=== PATIENT | female | born 1965 | race Caucasian/White ===

== ENCOUNTER 2021-11-27 10:22 | Inpatient (IN) | payer OTHER, MEDICAID ==
[~2021-11-27] VITALS: Ht 172.7 cm; Wt 73.4 kg
[2021-11-27] MEDS ORDERED: SODIUM CHLORIDE 0.9% 100 ML ONE (10:54)
[2021-11-27] MEDS ORDERED: IOHEXOL 350 MG/ML 100 ML VIAL ONE (10:54)
[2021-11-27] MEDS ORDERED: LABETALOL HCL 5 MG/ML 20 ML VIAL IVP ONE (11:00)
[2021-11-27] MEDS ORDERED: ALTEPLASE PER STROKE PROTOCOL CLINICAL ONE (11:00)
[2021-11-27] MEDS ORDERED: WATER FOR INJECTION STERILE IV ONE ×4 (11:00→11:15)
[2021-11-27] MEDS ORDERED: ALTEPLASE IV ONE ×4 (11:00→11:15)
[2021-11-27 11:05] LABS: BASOPHILS % (AUTO) 0.6 % (0.0-2.0); EOSINOPHILS % (AUTO) 0.3 % (1.0-6.0); HEMATOCRIT 43.9 % (36-46); HEMOGLOBIN 14.7 g/dL (12.0-16.0); LYMPHOCYTES # (AUTO) 1.4 K/uL (1.0-4.8); LYMPHOCYTES % (AUTO) 15.7 % (22.0-44.0); MEAN CORPUSCULAR HEMOGLOBIN 29.2 pg (26.0-34.0); MEAN CORPUSCULAR HGB CONC 33.4 G/dL (31.0-37.0); MEAN CORPUSCULAR VOLUME 88 fL (80-100); MONOCYTES # (AUTO) 0.4 K/uL (0.1-1.0); MONOCYTES % (AUTO) 4.7 % (2.0-9.0); NEUTROPHILS % (AUTO) 78.7 % (40.0-70.0); PLATELET COUNT (AUTO) 357 K/uL (150-450); RED BLOOD CELL COUNT(AUTO) 5.02 MIL/uL (4.00-5.20); RED CELL DISTRIBUTION WIDTH 13.4 % (11.5-14.5)
[2021-11-27 11:16] LABS: ANION GAP 10 mmol/L (8-16); CALCIUM, TOTAL 8.9 mg/dL (8.8-10.5); CARBON DIOXIDE 28 mmol/L (22-29); CHLORIDE 100 mmol/L (98-107); CREATININE 0.83 mg/dL (0.60-1.30); GLOMERULAR FILTR. RATE CALC > 60 mL/min (>60); GLUCOSE,RANDOM 117 mg/dL (70-110); POTASSIUM 3.9 mmol/L (3.5-5.1); SODIUM SERUM 138 mmol/L (136-145); UREA NITROGEN, BLOOD 15 mg/dL (7-18)
[2021-11-27 11:24] LABS: ALANINE AMINOTRANSFERASE 17 U/L (12-78); ALBUMIN 3.6 g/dL (3.4-5.0); ALKALINE PHOSPHATASE 98 U/L (46-116); ASPARTATE AMINOTRANSFERASE 15 U/L (15-37); BILIRUBIN,TOTAL 0.2 mg/dL (0.1-1.0)
[2021-11-27 11:25] LABS: PROTHROMBIN TIME 10.6 SEC (9.4-11.6)
[2021-11-27] MEDS ORDERED: ONDANSETRON HCL 4 MG/2 ML VIAL IVP PRN (11:45)
[2021-11-27] MEDS ORDERED: ACETAMINOPHEN 325 MG TABLET PO PRN (11:45)
[2021-11-27] MEDS ORDERED: BISACODYL 10 MG RECTAL RECTAL SUPPOSITORY PR PRN (11:45)
[2021-11-27 14:51] LABS: COVID AG,FIA SOURCE NASAL SWAB
[2021-11-27 14:53] LABS: APPEARANCE,URINE CLEAR (CLEAR); BILIRUBIN,URINE NEGATIVE (NEGATIVE); GLUCOSE, URINE (UA) NEGATIVE (NEGATIVE); KETONES,URINE NEGATIVE (NEGATIVE); LEUKOCYTE ESTERASE ,URINE NEGATIVE (NEGATIVE); NITRATE,URINE NEGATIVE (NEGATIVE); OCCULT BLOOD,URINE MODERATE (NEGATIVE); PH,URINE 5.5 (5.0-8.0); PROTEIN,URINE SEE CONFIRM (NEGATIVE); UROBILINOGEN,URINE 0.2 mg/dL (<=1.0)
[2021-11-27 14:59] LABS: AMPHET/METH SCREEN,URINE NEGATIVE (NEGATIVE); BARBITURATE SCREEN, URINE NEGATIVE (NEGATIVE); BENZODIAZEPINES SCREEN,URINE NEGATIVE (NEGATIVE); CANNABINOID SCREEN,URINE NEGATIVE (NEGATIVE); COCAINE SCREEN,URINE NEGATIVE (NEGATIVE); METHADONE SCREEN, URINE NEGATIVE (NEGATIVE); OPIATE SCREEN,URINE NEGATIVE (NEGATIVE)
[2021-11-27 15:00] LABS: PHENCYCLIDINE SCREEN,URINE NEGATIVE (NEGATIVE)
[2021-11-27 15:27] LABS: BACTERIA,URINE Rare /HPF (None Seen); SQUAMOUS EPITHELIAL CELL,UR Few /LPF (None Seen); SULFOSALICYLIC ACID,URINE 2+ (Negative); WBC,URINE 0-2 /HPF (0-5)
[2021-11-27] MEDS ORDERED: VANCOMYCIN HCL 1 GM in DEXTROSE 5%-WATER 250 ML IV ONE (17:00)
[2021-11-27] MEDS ORDERED: CefTRIAXone 1 GM/DEXTROSE 50 ML IV ONE (17:00)
[2021-11-27] MEDS ORDERED: VANCOMYCIN HCL 1 GM/D5% WATER 200 ML IV ONE (17:00)
[2021-11-27 20:00] VITALS: BP 117/54
[2021-11-27 21:00] VITALS: BP 103/46
[2021-11-27 22:00] VITALS: BP 98/48
[2021-11-27 23:00] VITALS: BP 118/40
[2021-11-28] VITALS (9 sets, daily range): BP systolic 100–118; BP diastolic 43–95
[2021-11-28] MEDS: PANTOPRAZOLE SODIUM 40 MG/VIAL IVP SCH (09:25)
[2021-11-28] MEDS: ASPIRIN 81 MG CHEWABLE TABLET PO SCH (12:07)
[2021-11-28] MEDS: ATORVASTATIN CALCIUM 40 MG TABLET PO SCH (12:08)
[2021-11-29 02:00] VITALS: BP 113/60
[2021-11-29 05:51] LABS: BASOPHILS % (AUTO) 0.9 % (0.0-2.0); EOSINOPHILS % (AUTO) 0.7 % (1.0-6.0); HEMATOCRIT 41.3 % (36-46); HEMOGLOBIN 14.1 g/dL (12.0-16.0); LYMPHOCYTES # (AUTO) 2.6 K/uL (1.0-4.8); LYMPHOCYTES % (AUTO) 25.8 % (22.0-44.0); MEAN CORPUSCULAR HEMOGLOBIN 29.6 pg (26.0-34.0); MEAN CORPUSCULAR VOLUME 87 fL (80-100); MONOCYTES % (AUTO) 9.7 % (2.0-9.0); NEUTROPHILS # (AUTO) 6.3 K/uL (1.8-7.7); NEUTROPHILS % (AUTO) 62.9 % (40.0-70.0); PLATELET COUNT (AUTO) 341 K/uL (150-450); RED BLOOD CELL COUNT(AUTO) 4.75 MIL/uL (4.00-5.20); RED CELL DISTRIBUTION WIDTH 13.4 % (11.5-14.5)
[2021-11-29 06:17] LABS: ANION GAP 10 mmol/L (8-16); CALCIUM, TOTAL 9.1 mg/dL (8.8-10.5); CARBON DIOXIDE 28 mmol/L (22-29); CHLORIDE 102 mmol/L (98-107); CREATININE 0.82 mg/dL (0.60-1.30); GLOMERULAR FILTR. RATE CALC > 60 mL/min (>60); GLUCOSE,RANDOM 87 mg/dL (70-110); POTASSIUM 3.5 mmol/L (3.5-5.1); SODIUM SERUM 140 mmol/L (136-145); UREA NITROGEN, BLOOD 23 mg/dL (7-18)
[2021-11-29] MEDS: PANTOPRAZOLE SODIUM 40 MG/VIAL IVP SCH (09:12)
[2021-11-29] MEDS: ATORVASTATIN CALCIUM 40 MG TABLET PO SCH (09:13)
[2021-11-29] MEDS: ASPIRIN 81 MG CHEWABLE TABLET PO SCH (09:13)
[2021-11-29 12:00] VITALS: BP 123/51
[2021-11-29 15:24] VITALS: BP 111/63
[2021-11-29] MEDS: HEPARIN SODIUM,PORCINE 5,000 UNITS/ML VIAL SQ SCH ×2 (16:51→23:53)
[2021-11-29 20:24] VITALS: BP 107/56
[2021-11-30 00:11] VITALS: BP 123/63
[2021-11-30 04:31] VITALS: BP 115/66
[2021-11-30 07:08] VITALS: BP 127/70
[2021-11-30] MEDS: PANTOPRAZOLE SODIUM 40 MG/VIAL IVP SCH (07:54)
[2021-11-30] MEDS: HEPARIN SODIUM,PORCINE 5,000 UNITS/ML VIAL SQ SCH (07:55)
[2021-11-30] MEDS: ATORVASTATIN CALCIUM 40 MG TABLET PO SCH (07:55)
[2021-11-30] MEDS: ASPIRIN 81 MG CHEWABLE TABLET PO SCH (07:55)
[2021-11-30 09:21] LABS: CHOL/HDL RATIO 3.3 (3.9-5.7)
[2021-11-30 11:59] VITALS: BP 131/83
[2021-11-30 15:09] VITALS: BP 127/75
== END 2021-11-30 16:41 | disposition home or self-care (01) | DRG 62 ==
LOC: EDUNIT# 10:22 → EMS 10:22 → ICUN 18:17 → 5S 11-29 14:45
PROVIDERS: ADMIT Internal Medicine; ATTEND Internal Medicine
DX: I63.9 Cerebral infarction, unspecified (principal); I69.351 Hemiplegia and hemiparesis following cerebral infarction affecting right dominant side; R47.01 Aphasia; I67.1 Cerebral aneurysm, nonruptured; I10 Essential (primary) hypertension; F32.A Depression, unspecified; Z20.822 Contact with and (suspected) exposure to COVID-19; E78.5 Hyperlipidemia, unspecified; E78.00 Pure hypercholesterolemia, unspecified
CPT/HCPCS: 70496; 70498; 70551; 71045; 80048; 80053; 80061; 81001; 81002; 84484; 85025; 85610; 85730; 86850; 86900; 86901; 87040; 87081; 92526; 92610; 93005; 93306; 93880; 97116; 97162; 97166; 97530; 97535; 99291; C9113; G0378; J0696; J1644; J2405; J2997; J3370; J7050; J7060; Q9967; 36415-L1; 36415-TC; 70450; 70450-TC

== ENCOUNTER 2024-10-23 19:42 | Emergency (ER) | payer OTHER, MEDICAID ==
[~2024-10-23] VITALS: Ht 165.1 cm; Wt 59.1 kg
[2024-10-23 19:52] VITALS: TEMP 98.3
[2024-10-23 23:24] LABS: EOSINOPHILS % (AUTO) 6.6 % (1.0-6.0); HEMATOCRIT 43.9 % (36-46); HEMOGLOBIN 14.4 g/dL (12.0-16.0); LYMPHOCYTES # (AUTO) 2.3 K/uL (1.0-4.8); LYMPHOCYTES % (AUTO) 31.4 % (22.0-44.0); MEAN CORPUSCULAR HEMOGLOBIN 29.7 pg (26.0-34.0); MEAN CORPUSCULAR HGB CONC 32.8 G/dL (31.0-37.0); MEAN CORPUSCULAR VOLUME 90 fL (80-100); MONOCYTES # (AUTO) 0.6 K/uL (0.1-1.0); MONOCYTES % (AUTO) 8.6 % (2.0-9.0); NEUTROPHILS # (AUTO) 3.9 K/uL (1.8-7.7); NEUTROPHILS % (AUTO) 52.4 % (40.0-70.0); PLATELET COUNT (AUTO) 404 K/uL (150-450); RED BLOOD CELL COUNT(AUTO) 4.85 MIL/uL (4.00-5.20); RED CELL DISTRIBUTION WIDTH 13.5 % (11.5-14.5); WHITE BLOOD COUNT (AUTO) 7.5 K/uL (4.5-11.0)
[2024-10-23 23:27] LABS: ANION GAP 8 mmol/L (8-16); CALCIUM, TOTAL 8.7 mg/dL (8.8-10.5); CARBON DIOXIDE 30 mmol/L (22-29); CHLORIDE 106 mmol/L (98-107); CREATININE 0.82 mg/dL (0.60-1.30); GLOMERULAR FILTR. RATE CALC > 60 mL/min (>60); GLUCOSE,RANDOM 95 mg/dL (70-110); POTASSIUM 3.7 mmol/L (3.5-5.1); SODIUM SERUM 144 mmol/L (136-145); UREA NITROGEN, BLOOD 16 mg/dL (7-18)
[2024-10-24] MEDS: DIPHENOXYLATE/ATROP 2.5-0.025 MG TABLET PO ONE (00:38)
[2024-10-24] MEDS: CIPROFLOXACIN HCL 250 MG TABLET PO ONE (00:38)
[2024-10-24] MEDS: OXYMETAZOLINE HCL 0.05% 15 ML NASAL SPRAY NASAL ONE (02:58)
[2024-10-24 03:02] VITALS: BP 129/74; PULSE 78; RESP 16; O2SAT 98
== END 2024-10-24 06:14 | disposition home or self-care (01) ==
LOC: EMS 19:42
DX: J06.9 Acute upper respiratory infection, unspecified (principal); R19.7 Diarrhea, unspecified; J44.9 Chronic obstructive pulmonary disease, unspecified
CPT/HCPCS: 80048; 85025; 99283; 99284